=== PATIENT | female | born 1950 | race Caucasian/White ===

== ENCOUNTER 2018-12-02 14:40 | Emergency (ER) | payer MEDICARE, BC ==
[~2018-12-02] VITALS: Ht 175.3 cm; Wt 84.1 kg
[2018-12-02] MEDS ORDERED: PAXIL20 M1 PO (14:48)
[2018-12-02] MEDS ORDERED: ZITHROMAX Z PA250 MG PO (14:48)
[2018-12-02 15:34] LABS: LIPASE 58 U/L (23-300)
[2018-12-02 17:07] VITALS: BP 117/60
== END 2018-12-02 17:24 | disposition other institution (70) ==
LOC: ED 14:40
PROVIDERS: Nurse Practitioner Family
DX: J18.1 Lobar pneumonia, unspecified organism (principal); R65.10 Systemic inflammatory response syndrome (SIRS) of non-infectious origin without acute organ dysfunction; E11.9 Type 2 diabetes mellitus without complications; Z87.891 Personal history of nicotine dependence; Z90.710 Acquired absence of both cervix and uterus
CPT/HCPCS: A4216; J0696; J2405; J7030

== ENCOUNTER 2018-12-02 16:27 | Inpatient (IN) | payer MEDICARE, BC ==
[~2018-12-02] VITALS: Ht 175.3 cm; Wt 85.4 kg
[~2018-12-02 16:27] MED LIST changes: -CEFDINIR300 MG PO; -DOXYCYCLINE HYC50 M1 PO
[2018-12-02 18:47] VITALS: BP 117/60
[2018-12-02 18:53] VITALS: BP 117/60
[2018-12-02 22:53] VITALS: BP 123/68
[2018-12-02 23:50] LABS: URINE APPEARANCE HAZY; URINE BILIRUBIN NEGATIVE (NEGATIVE); URINE BLOOD NEGATIVE (NEGATIVE); URINE COLOR YELLOW; URINE GLUCOSE 50 mg/dL mg/dL (NEGATIVE); URINE KETONE 1+ (NEGATIVE); URINE LEUKOCYTE ESTERASE 1+ (NEGATIVE); URINE NITRATE NEGATIVE (NEGATIVE); URINE PROTEIN(semi-quant) TRACE mg/dL (NEGATIVE); URINE UROBILINOGEN NORMAL (NORMAL)
[2018-12-03 03:30] VITALS: BP 117/70
[2018-12-03 06:10] VITALS: BP 115/69
[2018-12-03 06:29] LABS: CALCIUM 9.3 mg/dL (8.4-10.2); POTASSIUM 3.3 mmol/L (3.6-5.0)
[2018-12-03 06:42] LABS: HEMATOCRIT 40.6 % (37.0-47.0); HEMOGLOBIN 13.2 g/dL (12.5-16.0); MEAN CELL VOLUME 87 fl (78-100); MEAN CORPUSCULAR HEMOGLOBIN 28 pg (27-31); MEAN CORPUSCULAR HGB CONC 33 g/dL (33-37); MEAN PLATELET VOLUME 9.9 fl (7.4-10.4); PLATELET COUNT 264 K/mm3 (130-400); RED BLOOD COUNT 4.66 M/mm3 (4.10-5.30); RED CELL DISTRIBUTION WIDTH 13.7 % (11.5-14.5)
[2018-12-03 06:57] LABS: BAND 2 % (0-10); LYMPHOCYTE 1 % (20-51); MONOCYTE 1 % (3-10); NEUTROPHILS 96 % (42-75); WHITE BLOOD COUNT 37.4 K/mm3 (4.8-10.8)
[2018-12-03 10:54] VITALS: BP 134/70
[2018-12-03 14:51] VITALS: BP 128/69
[2018-12-03 18:47] VITALS: BP 128/62
[2018-12-03 23:20] VITALS: BP 118/73
[2018-12-04 03:07] VITALS: BP 137/70
[2018-12-04 06:12] VITALS: BP 139/79
[2018-12-04 07:45] LABS: HEMATOCRIT 32.3 % (37.0-47.0); HEMOGLOBIN 10.7 g/dL (12.5-16.0); MEAN CELL VOLUME 87 fl (78-100); MEAN CORPUSCULAR HEMOGLOBIN 29 pg (27-31); MEAN CORPUSCULAR HGB CONC 33 g/dL (33-37); MEAN PLATELET VOLUME 9.9 fl (7.4-10.4); PLATELET COUNT 260 K/mm3 (130-400); RED BLOOD COUNT 3.73 M/mm3 (4.10-5.30); RED CELL DISTRIBUTION WIDTH 13.7 % (11.5-14.5)
[2018-12-04 07:51] LABS: CALCIUM 8.7 mg/dL (8.4-10.2); POTASSIUM 3.6 mmol/L (3.6-5.0)
[2018-12-04 08:43] LABS: WHITE BLOOD COUNT 26.2 K/mm3 (4.8-10.8)
[2018-12-04 08:44] LABS: LYMPHOCYTE 6 % (20-51); MONOCYTE 3 % (3-10); NEUTROPHILS 91 % (42-75)
[2018-12-04 11:29] VITALS: BP 133/71
[2018-12-04 15:02] VITALS: BP 132/69
[2018-12-04 16:13] LABS: URINE APPEARANCE HAZY; URINE COLOR YELLOW
[2018-12-04 16:14] LABS: URINE BILIRUBIN NEGATIVE (NEGATIVE); URINE BLOOD NEGATIVE (NEGATIVE); URINE GLUCOSE NEGATIVE (NEGATIVE); URINE KETONE NEGATIVE (NEGATIVE); URINE LEUKOCYTE ESTERASE NEGATIVE (NEGATIVE); URINE NITRATE NEGATIVE (NEGATIVE); URINE PROTEIN(semi-quant) TRACE mg/dL (NEGATIVE); URINE UROBILINOGEN NORMAL (NORMAL)
[2018-12-04 18:19] VITALS: BP 173/88
[2018-12-04 23:05] VITALS: BP 146/75
[2018-12-05 03:00] VITALS: BP 165/79
[2018-12-05 06:03] VITALS: BP 167/88
[2018-12-05 09:10] LABS: EOS % 0.2 % (1.0-5.0); HEMATOCRIT 35.2 % (37.0-47.0); HEMOGLOBIN 11.4 g/dL (12.5-16.0); LYMPH# 2.1 (1.50-4.00); MEAN CELL VOLUME 88 fl (78-100); MEAN CORPUSCULAR HEMOGLOBIN 28 pg (27-31); MEAN CORPUSCULAR HGB CONC 32 g/dL (33-37); MEAN PLATELET VOLUME 9.8 fl (7.4-10.4); NEU # 9.5 (1.40-6.50); PLATELET COUNT 258 K/mm3 (130-400); RED BLOOD COUNT 4.02 M/mm3 (4.10-5.30); RED CELL DISTRIBUTION WIDTH 13.8 % (11.5-14.5); WHITE BLOOD COUNT 12.9 K/mm3 (4.8-10.8)
[2018-12-05 09:25] LABS: CALCIUM 8.8 mg/dL (8.4-10.2); POTASSIUM 4.1 mmol/L (3.6-5.0)
[2018-12-05] MEDS ORDERED: CEFDINIR300 MG PO (10:42)
[2018-12-05] MEDS ORDERED: DOXYCYCLINE HYC50 M1 PO (10:43)
[2018-12-05 11:16] VITALS: BP 143/81
== END 2018-12-05 13:06 | disposition home or self-care (01) | DRG 194 ==
LOC: MED/SURG 16:27
PROVIDERS: Family Medicine; Nurse Practitioner Family; ADMIT Nurse Practitioner Primary Care
DX: J18.1 Lobar pneumonia, unspecified organism (principal); N39.0 Urinary tract infection, site not specified; E11.9 Type 2 diabetes mellitus without complications; Z87.891 Personal history of nicotine dependence; R53.81 Other malaise
CPT/HCPCS: J1650; J1815; J2543; J2930; J7030; J7120

== ENCOUNTER → 2018-12-02 | Outpatient (CLI) | payer MEDICARE, BC ==
[~2018-12-02] MED LIST: CEFDINIR300 MG PO; DOXYCYCLINE HYC50 M1 PO; PAXIL20 M1 PO; ZITHROMAX Z PA250 MG PO
[2018-12-02 13:11] LABS: HEMATOCRIT 40.2 % (37.0-47.0); HEMOGLOBIN 13.1 g/dL (12.5-16.0); MEAN CELL VOLUME 87 fl (78-100); MEAN CORPUSCULAR HEMOGLOBIN 28 pg (27-31); MEAN CORPUSCULAR HGB CONC 33 g/dL (33-37); MEAN PLATELET VOLUME 9.5 fl (7.4-10.4); PLATELET COUNT 275 K/mm3 (130-400); RED BLOOD COUNT 4.65 M/mm3 (4.10-5.30); RED CELL DISTRIBUTION WIDTH 13.6 % (11.5-14.5)
[2018-12-02 13:24] LABS: CALCIUM 9.2 mg/dL (8.4-10.2); POTASSIUM 4.1 mmol/L (3.6-5.0)
[2018-12-02 13:32] LABS: WHITE BLOOD COUNT 37.8 K/mm3 (4.8-10.8)
[2018-12-02 14:02] LABS: BAND 9 % (0-10); LYMPHOCYTE 1 % (20-51); MONOCYTE 5 % (3-10); NEUTROPHILS 85 % (42-75)
[2018-12-02 15:22] LABS: ALBUMIN 4.5 g/dL (3.5-5.0); TOTAL BILIRUBIN 0.9 mg/dL (0.2-1.3); TOTAL PROTEIN 7.8 g/dL (6.3-8.2)
== END ==
LOC: LAB 12:51
PROVIDERS: Family Medicine
DX: J18.1 Lobar pneumonia, unspecified organism (principal); R81 Glycosuria

== ENCOUNTER → 2018-12-15 | Outpatient (CLI) | payer MEDICARE, BC ==
[2018-12-05 11:16] VITALS: BP 143/81
[~2018-12-15] MED LIST changes: +CEFDINIR300 MG PO; +DOXYCYCLINE HYC50 M1 PO
== END ==
LOC: MAMMO 10:33
DX: Z12.31 Encounter for screening mammogram for malignant neoplasm of breast (principal)

== ENCOUNTER → 2021-11-14 | Outpatient (CLI) | payer MEDICARE, BC | LOC: MAMMO 08:52 | DX: Z12.31 Encounter for screening mammogram for malignant neoplasm of breast (principal) ==

== ENCOUNTER → 2023-06-02 | Outpatient (CLI) | payer MEDICARE, BC | LOC: RAD 15:54 | DX: M47.816 Spondylosis without myelopathy or radiculopathy, lumbar region (principal); M41.86 Other forms of scoliosis, lumbar region; M25.551 Pain in right hip ==